=== PATIENT | male | born 1955 | race Two or more races ===

== ENCOUNTER 2022-01-21 19:09 | Emergency (ER) | payer MEDICARE | END 2022-01-21 21:10 | disposition home or self-care (01) | LOC: JP.ED 19:09 | DX: S00.03XA Contusion of scalp, initial encounter (principal); Z79.4 Long term (current) use of insulin; Z79.899 Other long term (current) drug therapy; W00.9XXA Unspecified fall due to ice and snow, initial encounter | CPT/HCPCS: 70450; 99283; 99283-25 ==